=== PATIENT | female | born 1950 | race Caucasian/White ===

== ENCOUNTER 2020-05-26 07:30 | Day surgery (SDC) | payer MEDICARE ==
--- NOTE | 2020-05-13 12:17 | NUR ---
DOS:05-26-20 PATIENT HAS 9 STEPS INTO THE HOME AND THEN 7 STEPS INTO THE LIVING AREA, SHOW IS A STEP IN WITH [employer] DOES NOT HAVE A SHOWER CHAIR, BUT WILL USE PLASTIC CHIR IF NEEDED. HAS CHAIR HIGH [employer]I[employer]. DOES HAVE [employer]ER TO HELP GET TO PHYSICAL THERAY AND APPOINTMENTS.
[~2020-05-26] VITALS: Ht 172.7 cm; Wt 99.1 kg
--- NOTE | ~2020-05-26 | OR ---
[facility] [address] [facility] [place], [place] [address] Draft DATE OF OPERATION: 05/26/2020 SURGEON: Manuel Ricci MD PREOPERATIVE DIAGNOSIS: Degenerative joint disease of left knee. POSTOPERATIVE DIAGNOSIS: Degenerative joint disease of left knee. PROCEDURE PERFORMED: Left total knee arthroplasty with Tyler. ALUMINUM SIDING INSTALLER: None. ANESTHESIA: Spinal. BLOOD LOSS: 175 mL. TOURNIQUET TIME: Zero. IMPLANTS: [place] Triathlon size 4 femur, 3 tibia, 10 mm polyethylene and 32 mm patella. 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 Nonoperative treatment has failed to control her symptoms. She wished to proceed with operation. DESCRIPTION OF PROCEDURE: Once consent was obtained, she was taken to the operating room. After adequate anesthesia, she was placed on operating room table. All downside pressure points were well padded. The left leg was prepped and draped in a standard sterile fashion and a standard anterior approach through a straight incision was taken through skin and subcutaneous tissue. A subvastus approach was taken through the capsule. The patella was then mobilized laterally and the infrapatellar fat pad was excised. The MCL was PATIENT NAME: KELLE CROUCH OPERATIVE REPORT DATE OF : 54 REPORT #: [id number] PHYSICIAN: MANUEL RICCI MD PCP: ALTA SIMON MD REPORT IS CONFIDENTIAL AND NOT TO BE RELEASED WITHOUT AUTHORIZATION [facility] [address] [place], [place] [address] Draft elevated with a sleeve around the posteromedial corner. The anterior horn of medial meniscus was transected as was the ACL. The lateral meniscus was gone. The knee was then flexed and the checkpoints were placed in the medial femoral condyle and in the tibia. The two Shantz pins for the femoral tracker were placed in the medial femoral condyle. The two in the tibia were placed one handbreadth below the tuberosity through percutaneous stab incisions. The leg was then registered with the computer. The fine anatomic points were registered with the computer. We then checked soft tissue balance and adjusted the prosthesis accordingly. The robot was then brought in and we started with the straight cuts on the tibia, followed by the 3 femoral cuts and the bone was excised. The saw was switched to the angled saw blade and the 2 angle cuts were made. The bone remnants removed as were any remaining osteophytes. The tibial and femoral trials were then positioned, knee was taken through range of motion and found to be quite stable, but just little bit loose, so I switched to a 10 mm polyethylene. We then cut sized and drilled the patella for a 32 patella. The distal femoral drill holes were made in the proximal tibia and was finished using the keel punch. The bone was pulse lavaged and packed with dry Ray-Antonio. Cement was mixed and reached proper consistency, it was placed on tibial and patellar implants as well as the tibia and the knee. The implant was then impacted until it was well seated and all excess cement was removed. The polyethylene was snapped into position, the femur was impacted into place. The knee was extended and nicely loaded. The patella was then clamped into position, any remaining overflow was removed. The cement was allowed to harden for 14 minutes and the clamp was removed. The knee was pulse lavaged at intervals throughout the procedure, a total of 3 L normal saline and 1 L of dilute iodine were used. The periarticular soft tissues were injected with 100 mL of ropivacaine Toradol mixture. The On-Q pain pump was then placed percutaneously into the adductor canal and the arthrotomy was closed using #2 Stratafix, the subcutaneous tissue was closed with #1 Stratafix, and skin with lashawn. Wound was dressed with Acticoat dressing and ABD, and Agustin wrap. She tolerated the procedure well. All sponge, needle, and instrument counts were correct. Manuel Ricci MD BA/MODL /[id number] Copies: PATIENT NAME: KELLE CROUCH OPERATIVE REPORT DATE OF : 54 REPORT #: [id number] PHYSICIAN: MANUEL RICCI MD PCP: ALTA SIMON MD REPORT IS CONFIDENTIAL AND NOT TO BE RELEASED WITHOUT AUTHORIZATION [address] [place], [place] [address] Draft ~ PATIENT NAME: KELLE CROUCH OPERATIVE REPORT DATE OF : 54 REPORT #: [id number] PHYSICIAN: MANUEL RICCI MD PCP: ALTA SIMON MD REPORT IS CONFIDENTIAL AND NOT TO BE RELEASED WITHOUT AUTHORIZATION
[~2020-05-26 07:30] MED LIST: ACETAMINOPHEN500 MG PO; CALCIUM 600 +1 EAC1 PO; COUMADIN4 MG PO; FERROUS SULFAT325 MG PO; JANTOVEN5 MG PO; MULTIVITAMINS1 EAC7 PO; VITAMIN D31000 UNI2 PO; ZOLOFT50 MG PO
[2020-05-26] MEDS ORDERED: LOVENOX100 MG/1 M SUB-Q (07:50)
--- NOTE | 2020-05-26 08:00 | NUR ---
0800: PT BRUSHES TEETH WITH PROVIDED RINSE, INSTRUCTED TO SPIT AND NOT SWALLOW. NOSE SWABBED, MASK IN PLACE. BILAT ISSAC HOSE PLACED.
--- NOTE | 2020-05-26 08:42 | NUR ---
RN ASSIST TO BR. PT BACK TO DS RM 4. DENIES WARM BLANKET, SPOUSE AT BEDSIDE WITH CALL LIGHT IN REACH.
--- NOTE | 2020-05-26 09:15 | NUR ---
THIS RN ASSISTS KIMBERLY ROMERO WITH NERVE BLOCK ON LEFT LEG. PICTURES OBTAINED AND PRINTED. PT TOLERATES NERVE BLOCK WELL.
[2020-05-26] MEDS ORDERED: ACETAMINOPHEN500 MG PO (11:09)
[2020-05-26] MEDS ORDERED: OXYCODONE HCL5 MG PO (11:09)
--- NOTE | 2020-05-26 11:12 | NUR ---
05/26/20 1112 Petra Harris 1105- PT ARRIVES TO PACU ALERT AND TALKING. PT REPORTS NO PAIN OR NAUSEA. OXYGEN SAT HIGH 80'S TO LOW 90'S ON RA. PT ENCOURAGED TO COUGH AND DEEP BREATHE. PT IS ABLE TO DO THIS AND OXYGEN SAT INCREASES SLIGHTLY. 1106- PT PLACED ON 2L O2 VIA NC FOR OXYGEN SAT IN THE HIGH 80'S TO LOW 90'S ON RA. OXYGEN SAT INCREASED TO THE MID 90'S ON THIS 2L VIA NC.
--- NOTE | 2020-05-26 11:48 | NUR ---
PT ARRIVES TO DS RM 4 FROM PACU AWAKE AND ALERT. PT ON 2L VIA NC, SATS GREATER THAN 94%. PT DENIES PAIN IN LEFT KNEE, STATES TOES ARE "NUMB". PT DENIES ANY NAUSEA, TOLERATES WATER. PT SPOUSE AT BEDSIDE. PT EDUCATED ABOUT DC CRITERIA. CALL LIGHT WITHIN REACH. CRACKERS AND APPLESAUCE AT BEDSIDE.
--- NOTE | 2020-05-26 12:17 | NUR ---
SECOND DOSE OF TXA ADMINISTERING. PATIENT REPORTED PAIN 6/10 ON PAIN SCALE. ADMINISTERED PAIN MEDICATION PER JUL. PROVIDED WARM BLANKETS AND ICE WATER. NO OTHER NEEDS AT THIS TIME.
--- NOTE | 2020-05-26 12:42 | NUR ---
PATIENT EATING LUNCH, OXYGEN SATURATION 94% ON RA. ENCOURAGED PATIENT TO COUGH AND DEEP BREATH. PATIENT RATES PAIN 2/10 WHEN LEFT LEG RESTING, THEN WHEN MOVING LEG RATES PAIN 8/10 ON PAINS SCALE. STATES " THE PAIN FEELS LIKE I AM ON THE VERGE OF HAVING A REALLY BAD CRAMP". NOTIIFED YEMI RN PATIENT PRIMARY NURSE.
--- NOTE | 2020-05-26 12:46 | NUR ---
DR. HOFF CALLED REGARDING PT PAIN. VERBAL ORDERS TO GIVE 10MG PO OXYCODONE PER EMAR AND INCREASE ON-Q PUMP TO 6. WILL CONT TO MONITOR PT PAIN. PT RESTING IN BED EATING LUNCH, CALL LIGHT WITHIN REACH.
--- NOTE | 2020-05-26 13:07 | NUR ---
PAULIE WITH PHYSICAL THERAPY CALLED TO CHECK ON PT. PT STATES THAT PAIN IS "TOLERABLE" AND FEELS THAT SHE COULD DO PHYSICAL THERAPY AT THIS TIME. PAULIE WILL COME SEE PT SOON.
--- NOTE | 2020-05-26 13:16 | NUR ---
PAULIE WITH PHYSICAL THERAPY IN PT ROOM AT THIS TIME.
--- NOTE | 2020-05-26 14:00 | NUR ---
PT BACK TO RM 4 FROM PHYSICAL THERAPYAPULIE STATES THAT PT IS SAFE TO DC HOME AT THIS TIME. DR. HOFF NOTIFIED, GIVES VERBAL ORDERS FOR (3) XARELTO TABS PO DAILY. THIS RN CALLS ORDER IN TO [facility].
--- NOTE | 2020-05-26 15:00 | NUR ---
1500: PT SPOUSE NOTIFIED FOR SAFE RIDE HOME. DC INSTRUCTIONS PRESENTED TO PT, ALL QUESTIONS ADDRESSED. PT INFORMED OF MEDICATION CALLED INTO PHARMACY. PT DC VIA WC TO SPOUSE VEHICLE AT MAIN ENTRANCE OF HOSPITAL TO HOME.
== END 2020-05-26 15:35 | disposition home or self-care (01) ==
LOC: DS 07:30
PROVIDERS: ATTEND Specialist
PROC: 8E0YXBZ Computer Assisted Procedure of Lower Extremity (ICD-10-PCS; 2020-05-26)
PROC: 0SRD0J9 Replacement of Left Knee Joint with Synthetic Substitute, Cemented, Open Approach (ICD-10-PCS; principal; 2020-05-26 08:45)
DX: M17.12 Unilateral primary osteoarthritis, left knee (principal); G89.18 Other acute postprocedural pain; D68.59 Other primary thrombophilia; I35.8 Other nonrheumatic aortic valve disorders; G47.33 Obstructive sleep apnea (adult) (pediatric); F33.41 Major depressive disorder, recurrent, in partial remission; Z79.01 Long term (current) use of anticoagulants; Z88.2 Allergy status to sulfonamides; Z88.8 Allergy status to other drugs, medicaments and biological substances; Z91.018 Allergy to other foods; Z88.1 Allergy status to other antibiotic agents; Z88.0 Allergy status to penicillin
CPT/HCPCS: 01402; 64447; 64450; 76942; 97110; 97161; C1713; C1776; J0690; J1100; J2001; J2250; J2405; J2704; J2795; J7121

== ENCOUNTER 2022-10-17 09:52 | Emergency (ER) | payer MEDICARE ==
[~2022-10-17] VITALS: Ht 172.7 cm; Wt 119.4 kg
[~2022-10-17 09:52] MED LIST changes: +ENOXAPARIN120 MG/0.8 SUB-Q; +GABAPENTIN300 MG PO; +LOVENOX100 MG/1 M SUB-Q; +OXYCODONE HCL5 MG PO
[2022-10-17] MEDS ORDERED: AZITHROMYCIN250 MG PO (10:20)
[2022-10-17] MEDS ORDERED: CEFPODOXIME PR200 MG PO (10:20)
[2022-10-17] MEDS ORDERED: VENTOLIN HFA18 GM INH (12:09)
[2022-10-17 12:34] VITALS: BP 91/51
== END 2022-10-17 12:34 | disposition home or self-care (01) ==
LOC: ED 09:52
DX: J18.9 Pneumonia, unspecified organism (principal); Z88.2 Allergy status to sulfonamides; Z88.0 Allergy status to penicillin; Z88.1 Allergy status to other antibiotic agents; Z79.899 Other long term (current) drug therapy; Z79.01 Long term (current) use of anticoagulants
CPT/HCPCS: 36415; 71045; 80053; 85025; 85610; 94640; 94664